=== PATIENT | male | born 1985 | race Caucasian/White ===

== ENCOUNTER 2017-10-09 22:59 | Emergency (ER) | payer MEDICAID ==
[~2017-10-09] VITALS: Ht 185.4 cm; Wt 88.5 kg
[~2017-10-09 22:59] MED LIST: BUPROPION XL150 MG PO; DOXYCYCLINE HY100 MG PO; ZOLOFT50 MG PO
[2017-10-09] MEDS ORDERED: CLINDAMYCIN HC300 MG PO (23:22)
== END 2017-10-09 23:36 | disposition home or self-care (01) ==
LOC: ED 22:59
DX: L03.314 Cellulitis of groin (principal); L02.214 Cutaneous abscess of groin; Z87.891 Personal history of nicotine dependence; Z88.0 Allergy status to penicillin
CPT/HCPCS: 99282